=== PATIENT | male | born 1940 | race Caucasian/White ===

== ENCOUNTER 2016-11-03 01:08 | Day surgery (SDC) | payer MEDICARE ==
[~2016-11-03] VITALS: Ht 188 cm; Wt 127.0 kg
[2016-11-03] VITALS (14 sets, daily range): BP systolic 93–139; BP diastolic 56–83; PULSE 60–77; RESP 13–20; O2SAT 92–95
[~2016-11-03 01:08] MED LIST: ASCO500W7 PO; ASPI-973 PO; CALC-1009 PO; CHOL500011 PO; CYAN500 PO; DICY10CA13 PO; FLUT15.88 NOSTRIL; FURO-128 PO; GLIM1TAB PO; L. A1CAP7 PO; LEVO125T6 PO; LORA10CA PO; LOSA25TA21 PO; MAGN400C PO; METO50TA3 PO; NYST1000 PO; OMEP20CA11 PO; OXYB5TAB10 PO; PIOG30TA26 PO; POLY1DRO BOTH_EYES; PRD1T PO; SIMV40TA5 PO; TAMS0.4C98 PO; TRIA15OI9 TOP; ZINC50TA4 PO; [UNRECOGNIZED DRUG - CODE] TP
[2016-11-03] MEDS ORDERED: Sodium Chloride LOK Flush 10 mL Syringe IVFLUSH PRN (11:05)
[2016-11-03] MEDS ORDERED: Vancomycin Inj 1,000 MG in IV Premix 1 EACH IV SCH (11:05)
[2016-11-03] MEDS ORDERED: 0.9% Sodium Chloride 1,000 ML IV SCH (11:05)
[2016-11-03 12:44] LABS: BASOPHILS % (AUTO) 0.2 % (0-3); EOSINOPHILS % (AUTO) 6.8 % (0-5); MONOCYTES % (AUTO) 7.3 % (4-12); Mean Corpuscular Hemoglobin 32.8 pg (27.0-35.0); Mean Corpuscular Volume 98.1 fL (81-100); NEUTROPHILS % (AUTO) 57.3 % (40-74); Platelet Count 162 bil/L (150-400)
[2016-11-03 13:22] LABS: INR 0.97 ratio
[2016-11-03] MEDS ORDERED: Heparin 10,000 Unit/1,000 mL NS Premix IV ONE (13:37)
[2016-11-03] MEDS ORDERED: 0.9% Sodium Chloride 250 ML ONE (13:37)
[2016-11-03] MEDS ORDERED: Vancomycin 1,000 mg Inj ONE (13:37)
[2016-11-03] MEDS ORDERED: Bupivacaine-MPF 0.5% 30 mL Inj ONE (13:37)
[2016-11-03] MEDS ORDERED: Water for Injection 50 ML IV ONE (13:38)
[2016-11-03] MEDS ORDERED: MYCC TOPICAL (13:43)
[2016-11-03] MEDS ORDERED: ZINC100T2 PO (13:43)
[2016-11-03] MEDS ORDERED: PIOG15TA21 PO (13:43)
[2016-11-03] MEDS ORDERED: CALC600T20 PO (13:43)
[2016-11-03] MEDS ORDERED: MULT-1018 PO (13:43)
[2016-11-03] MEDS ORDERED: MYCC TOP (13:43)
[2016-11-03] MEDS ORDERED: ASCO-294 PO (13:43)
--- NOTE | 2016-11-03 14:22 | NUR ---
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 Dr. Marshall came to review care plan and procedure with pt. Pt. signed informed consent agreed with plan. Pt. has 2 patent peripheral IVs.
[2016-11-03] MEDS ORDERED: fentaNYL-PF 50 mCg/mL 2 mL Inj ONE (14:46)
[2016-11-03] MEDS: 0.9% Sodium Chloride 1,000 ML IV SCH (15:39)
[2016-11-03] MEDS ORDERED: HYDROcodone-APAP 5-325 mg Tablet PO PRN (15:40)
[2016-11-03] MEDS ORDERED: Ondansetron 2 mg/mL 2 mL Inj IVPUSH PRN (15:40)
--- NOTE | 2016-11-03 16:51 | NUR ---
lab support service tech to [facility] Pt. transferred back to [facility] at 1550. On arrival, he was alert and CASILLAS. Ice pack applied to L. upper chest site. L. upper chest [place] dressing CDI. Pt. reported no pain. HOB elevated 30 degree. Call light within reach.
--- NOTE | 2016-11-03 19:02 | NUR ---
[facility] to [facility] Pt. transferred to [facility] at 1830 in stable condition. Pt. is 100% AV-paced. Belongings transferred to [facility]. Report given to Negin Garcia RN.
--- NOTE | 2016-11-03 19:07 | NUR ---
Post Pacer Patient arrived to room at 1840 via wheelchair, amb to bed with assist and cane. Left chest drsg c/d/i with scant old sangineous drainage. Patient denies pain at this time. Tele AV paced. CLINICAL INFORMATICS STRATEGIST to orient to room, call light and phone.
--- NOTE | 2016-11-03 20:58 | OP ---
[address] [address] OPERATIVE REPORT PATIENT: XANDER WALSH : 1940 MR#: [id number] ADMIT: 11/03/2016 JOB ID: [id number] DATE OF SURGERY: 11/03/2016 PREOPERATIVE DIAGNOSIS(ES): Dual-chamber pacemaker battery depletion. POSTOPERATIVE DIAGNOSIS(ES): Dual-chamber pacemaker battery depletion. PROCEDURE PERFORMED: Dual-chamber pacemaker generator replacement. SURGEON: Sacha Marshall MD, electrophysiology attending. BUDGET CLERK: Palmer Nielsen. IMPLANTED DEVICE: [employer] pulse generator, model 2240, serial #[id number]. EXPLANTED DEVICE: Biotronik Evia DR-T, serial #[id number]. CHRONIC DEVICES: Biotronik , 52 cm, serial #[id number]. RV lead: Biotronik , 58 cm, serial #[id number] ANESTHESIA: Bolus dosing of Versed and fentanyl for appropriate level of sedation. INDICATION: The patient is a pleasant, 76-year-old man with high-grade AV block whose dual-chamber pacemaker has reached YANIQUE. After discussion of risks and benefits of generator replacement, he opted to proceed. PROCEDURAL DESCRIPTION: Following informed consent, the patient was taken to the EP laboratory in a fasting state where he was prepped and draped in the usual sterile fashion. The left deltopectoral incision was infiltrated with 30 cc of a 50/50 mixture of bupivacaine and lidocaine. Once adequate anesthesia had been achieved, a 3 cm incision was performed overlying the previous surgical scar. Dissection was carried down to the capsule and then the leads and generator were freed loose of adhesions. The entire system was externalized and the chronic leads were disconnected, the old generator inspected. It was noted to be intact. Pocket was then copiously irrigated with antibiotic solution. The chronic leads were connected to a new pulse generator through which the leads were tested. R-waves were on the low side at 3.6 mV in the bipolar configuration and threshold was 1.375 V at 1 msec, but overall impedances were stable. The patient paces the preponderance of the time in both chambers. The atrial lead had an excellent threshold of sub 1 V and P waves 2.4 mV with impedance of 460 ohms. The entire system was replaced within the capsule and the incision was then closed with running layers of absorbable suture. The wounds were dressed with skin adhesive and a small dressing. At the end of the procedure, the needle, sponge, instrument counts were correct. COMPLICATIONS: None. ESTIMATED BLOOD LOSS: Negligible. DEVICE MEASURED DATA: 1. Right atrial lead, 2.4 mV, 0.75 V at 0.4 msec, 460 ohms. 2. RV lead 3.6 mV, 1.375 V at 1 msec, 460 ohms. 3. Final parameter was DDDR 60-130 beats per minute. IMPRESSION: Successful dual-chamber pacemaker generator replacement. PLAN: 1. Recovery and discharge from the [facility]. 2. Doxycycline 100 mg treated daily x7 days. 3. Wound check in one week. ATTENDING STATEMENT: Sacha Sanders MD, electrophysiology attending, was present for and supervised/performed all aspects of this procedure.
[2016-11-04] MEDS: 0.9% Sodium Chloride 1,000 ML IV SCH ×2 (00:20→08:34)
[2016-11-04 01:06] VITALS: BP 124/74; PULSE 60; RESP 20; O2SAT 95
[2016-11-04 05:57] VITALS: BP 127/71; PULSE 64; RESP 16; O2SAT 99
--- NOTE | 2016-11-04 06:25 | NUR ---
Pain Has denied any significant pain all shift reporting at worse 1/10 pacer site pain which resolved with rest and ice. Currently resting without any complaints.
[2016-11-04] MEDS ORDERED: Pantoprazole 20 mg ER24 Tablet PO SCH (07:30)
--- NOTE | 2016-11-04 07:36 | PCM.DIMED ---
Discharge Instructions Date of Service Nov 04, 2016 Dates of Hospitalization Discharge Diagnosis Discharge Diagnosis Mobitz II 2nd Degree AV Block Diabetes Chronic Kidney Disease Hypertension Pacemaker Battery Depletion Diet Discharge Diet: Low fat, Low Sodium, Diabetic Activity Discharge Activity: Other (Do not extend left elbow high above head for one month. Do not lift, push or pull more than 10 lbs with the left arm for one month. Keep incision dry for one day.) Call your provider Call your provider for: Fever or Chills, Bleeding, Excessive diarrhea Patient Instructions Follow-up in: 1 week Mid-level Provider (F9): Gasper Jaramillo PA-C Follow-up with Mid-level in: 6 weeks Gaspre Jaramillo PA-C Nov 04, 2016 07:36
[2016-11-04] MEDS ORDERED: CEPH500C PO (07:54)
[2016-11-04] MEDS ORDERED: predniSONE 1 mg Tablet PO SCH (08:00)
[2016-11-04 08:16] VITALS: BP 148/82; PULSE 60; RESP 16; O2SAT 97
[2016-11-04] MEDS ORDERED: Fluticasone 0.05% 15 Spray/2 Gm 16 Gm Nasal Spray NASAL SCH (08:30)
[2016-11-04] MEDS ORDERED: Ascorbic Acid 500 mg Tablet PO SCH (08:30)
--- NOTE | 2016-11-04 08:49 | DIS ---
[address] [address] DISCHARGE SUMMARY PATIENT: XANDER WALSH : 1940 MR#: [id number] ADMIT: 11/03/2016 JOB ID: [id number] DIS: 11/04/2016 REASON FOR ADMISSION: Pacemaker replacement. CHIEF COMPLAINT: Pacemaker battery depletion. BRIEF HISTORY: The patient is a pleasant 76-year-old man with a history of Mobitz II second-degree AV block and a dual-chamber pacemaker since 2009. He also has chronic kidney disease, diabetes mellitus, hypertension, and obesity. His pacemaker reached its expected battery depletion time and he was scheduled for pacemaker placement. The pacing leads were performing well and would not need to be replaced. COURSE IN THE HOSPITAL: The patient was admitted to the [facility] and taken to the chemical lab supervisor, where the pacemaker was replaced without incident. The leads were tested and were performing well and were kept in use. Afterward, he was taken back to the [facility] for recovery from sedation and then since he lives at a [facility] and they were not able to provide transportation due to the late hour, he was kept overnight in the [facility] for observation. In the morning, he felt well for discharge home. The pacemaker site was closed and dry and there was only a modest amount of ecchymoses. Cardiac telemetry showed normal pacemaker function. The device interrogation showed good capture and sensing thresholds and this was tested in the [facility] yesterday. He had no complaints of pain or nausea or dizziness. DISPOSITION: The patient was discharged home in good condition with a followup appointment at the [facility] Cardiology office on November 17. He was asked not to extend his left elbow high above his shoulder for one month and not to lift push or pull more than 10 pounds with the left arm for one month. He was also asked to keep the incision dry today, then he may start bathing and get the incision wet as normal. He will follow his heart healthy and diabetic diets and take medications as prescribed. DISCHARGE MEDICATIONS: 1. Cephalexin 500 mg b.i.d. for one week. 2. Vitamin C 1 g q.a.m. 3. Aspirin 81 mg daily. 4. Calcium carbonate 600 mg b.i.d. 5. Vitamin D 3 at 5000 units q.a.m. 6. Vitamin B12 at 1000 mcg q.a.m. 7. 10 mg q.i.d. p.r.n. GI cramps. 8. Fluticasone nasal spray 2 sprays each nostril q.a.m. 9. Desenex powder applied topically p.r.n. itching. 10. Furosemide 40 mg q.a.m. 11. Glimepiride 1 mg daily. 12. Probiotic 1 capsule daily. 13. Levothyroxine 125 mcg daily. 14. Loratadine 10 mg q.a.m. 15. Losartan 25 mg daily. 16. Magnesium oxide 400 mg q.a.m. 17. Metoprolol tartrate 50 mg b.i.d. 18. Multivitamin 1 daily. 19. Nystatin cream applied topically p.r.n. itching. 20. Omeprazole 20 mg daily. 21. Oxybutynin 2.5 mg q.a.m. 22. Pioglitazone 15 mg every other day. 23. Refresh classic eye drops 1 drop both eyes t.i.d. 24. Prednisone 1 mg q.a.m. 25. Simvastatin 40 mg q.h.s. 26. Tamsulosin 0.4 mg q.h.s. 27. Triamcinolone acetonide ointment applied topically b.i.d. 28. Zinc gluconate 15 mg tablet q.a.m. FINAL DIAGNOSES: 1. Mobitz II second-degree AV block. 2. Pacemaker battery depletion. 3. Diabetes mellitus. 4. Hypertension. 5. Chronic kidney disease. 6. Obesity.
--- NOTE | 2016-11-04 11:38 | NUR ---
Discharge Note Pt discharged, [facility] transporter at round about to take home. Telemetry & IV catheters x 2 removed. Discharge instructions/medications discussed & understood. All belongings, including cane gathered, nothing left behind. No c/o pain, mentation @ baseline. Pacer site open to air & WNL, discussion of signs & symptoms of infection & restrictions. Abx prescription faxed to [facility] in [place]. Cardiology device clinic called to make them aware patient will need a new home device, stated they would call patient to arrange. F/u appt's set up, patient aware. Patient transported out via wheelchair by ONCOLOGY NURSE NAVIGATOR.
== END 2016-11-04 11:20 ==
LOC: SOUO 01:08 → MPC 19:00 → SOUO 11-04 11:20
PROVIDERS: ATTEND Internal Medicine Cardiovascular Disease
DX: Z45.010 Encounter for checking and testing of cardiac pacemaker pulse generator [battery] (principal); I44.1 Atrioventricular block, second degree; N40.1 Benign prostatic hyperplasia with lower urinary tract symptoms; E11.22 Type 2 diabetes mellitus with diabetic chronic kidney disease; E11.40 Type 2 diabetes mellitus with diabetic neuropathy, unspecified; N18.3 Chronic kidney disease, stage 3 (moderate); E66.9 Obesity, unspecified; E03.9 Hypothyroidism, unspecified; Z79.82 Long term (current) use of aspirin; Z79.84 Long term (current) use of oral hypoglycemic drugs; Z79.52 Long term (current) use of systemic steroids; E78.00 Pure hypercholesterolemia, unspecified; Z68.35 Body mass index [BMI] 35.0-35.9, adult
CPT/HCPCS: 33228; 36415; 80048; 85025; 85610; 93005; 99152; 99153; C1769; C1785; J1644; J2250; J3010; J3370; J7030; J7050